=== PATIENT | female | born 1930 | race Caucasian/White ===

== ENCOUNTER 2018-06-21 10:44 | Inpatient (IN) ==
[2018-06-21] MEDS ORDERED: LEVAQUIN PREMIX IV 750 MG 750 MG/150 ML BAG IV SCH (13:16)
[2018-06-21] MEDS ORDERED: TUSSIONEX PENNKINETIC SUSP PO PRN (13:16)
[2018-06-21 13:19] VITALS: BMI 22.8
[2018-06-21] MEDS ORDERED: SALINE 3% 15 ML NEB TX NEB ONE (13:22)
[2018-06-21] MEDS ORDERED: NS 1/2 1000 ML IV 1,000 ML ONE (13:44)
[2018-06-21] MEDS: NS 1/2 1000 ML IV 1,000 ML IV SCH (13:45)
[2018-06-21] MEDS: VSL#3 PO SCH (13:45)
[2018-06-21 13:49] LABS: BASOPHILS # (AUTO) 0.1 X10^3/uL (0.0-0.1); BASOPHILS % (AUTO) 0.5 % (0.2-1.0); EOSINOPHILS # (AUTO) 0.2 x10^3/uL (0.0-0.2); HEMATOCRIT 29.2 % (36.0-47.0); HEMOGLOBIN 9.8 g/dL (12.0-16.0); LYMPHOCYTES # (AUTO) 1.5 X10^3/uL (1.3-2.9); LYMPHOCYTES % (AUTO) 14.2 % (21.0-51.0); MEAN CORPUSCULAR HEMOGLOBIN 28.2 pg (27.0-34.0); MEAN CORPUSCULAR HGB CONC 33.4 g/dL (33.0-35.0); MEAN CORPUSCULAR VOLUME 84.3 fL (80.0-100.0); MEAN PLATELET VOLUME 8.2 fL (7.4-11.0); MONOCYTES # (AUTO) 0.5 x10^3/uL (0.3-0.8); MONOCYTES % (AUTO) 4.8 % (0.0-13.0); NEUTROPHILS # (AUTO) 8.5 x10^3/uL (2.2-4.8); NEUTROPHILS % (AUTO) 78.5 % (42.0-75.0); PLATELET COUNT 232 X10^3/uL (150.0-450.0); RED BLOOD COUNT 3.47 X10^6/uL (3.5-5.4); RED CELL DISTRIBUTION WIDTH 15.8 % (11.6-16.5); WHITE BLOOD COUNT 10.9 X10^3/uL (3.6-10.0)
[2018-06-21 14:01] LABS: ALANINE AMINOTRANSFERASE 36 Units/L (12-78); ALBUMIN 3.4 g/dL (3.4-5.0); ALKALINE PHOSPHATASE 135 Units/L (46-116); ASPARTATE AMINO TRANSFERASE 22 Units/L (15-37); BLOOD UREA NITROGEN 38 mg/dL (7-18); CALCIUM 9.3 mg/dL (8.5-10.1); CARBON DIOXIDE 24.2 mmol/L (21-32); CHLORIDE 102 mmol/L (98-107); COR NA(FOR HYPERGLY) 141 mmol/L (136-145); CREATININE 1.96 mg/dL (0.55-1.02); SODIUM 139 mmol/L (136-145); TOTAL PROTEIN 7.2 g/dL (6.4-8.2); eGFR NON BLACK RACES 26 (>60)
[2018-06-21] MEDS: ROBITUSSIN DM PO SCH ×3 (14:04→20:23)
[2018-06-21] MEDS ORDERED: PHARMACY CONSULT - DOSE _____ XX SCH (17:00)
[2018-06-21] MEDS: DUONEB 0.5 MG/3 MG NEB SCH ×2 (17:11→21:20)
[2018-06-21] MEDS: DECADRON JET NEB (RESP USE) NEB SCH ×2 (17:53→21:20)
--- NOTE | 2018-06-21 18:30 | RAD ---
Chest AP portable Indication: Pneumonia Comparison: 03/12/2018 Findings: There is no pneumothorax. There is cardiomegaly and COPD change with increased interstitial markings. Dense right mid lung zone opacities compatible with pneumonia. Impression: 1. Right mid lung opacity, most compatible with pneumonia. Follow-up to resolution to exclude underlying lesion 2. Cardiomegaly and COPD change. Background of CHF not excluded. Reported By:
[2018-06-21] MEDS: ZOCOR TAB 20 MG PO SCH (20:23)
[2018-06-21] MEDS ORDERED: PULMICORT NEB TX 0.5 MG NEB SCH (21:00)
--- NOTE | 2018-06-21 21:59 | DR.UPDATE ---
H&P Update History and Physical Update: WAS SEEN IN THE OFFICE TODAY FOR COMPLAINTS OF A PERSISTENT, PRODUCTIVE COUGH FOR THE PAST SEVERAL DAYS. SHE REPORTED USE OF RESPIRATORY TREATMENTS WITHOUT IMPROVEMENT IN SYMPTOMS. SHE WAS ADMITTED FOR FURTHER EVALUATION AND TREATMENT OF PNEUMONIA. ON ADMISSION, WE PLAN TO OBTAIN LABS AND CHEST XRAY. WE WILL START HER ON THE PNEUMONIA PROTOCOL WITH IV LEVAQUIN. OTHERWISE, WE WILL FOLLOW UP WITH AM LABS AND CONTINUE TO MONITOR. Changes noted: NO
[2018-06-22] MEDS: NS 1/2 1000 ML IV 1,000 ML IV SCH ×3 (03:06→18:01)
[2018-06-22] MEDS ORDERED: NS 1/2 1000 ML IV 1,000 ML ONE ×3 (04:06→20:21)
[2018-06-22 05:59] LABS: BASOPHILS % (AUTO) 0.3 % (0.2-1.0); EOSINOPHILS % (AUTO) 0.3 % (0.9-2.9); HEMATOCRIT 28.6 % (36.0-47.0); HEMOGLOBIN 9.6 g/dL (12.0-16.0); LYMPHOCYTES # (AUTO) 1.1 X10^3/uL (1.3-2.9); LYMPHOCYTES % (AUTO) 11.3 % (21.0-51.0); MEAN CORPUSCULAR HEMOGLOBIN 28.6 pg (27.0-34.0); MEAN CORPUSCULAR HGB CONC 33.7 g/dL (33.0-35.0); MEAN CORPUSCULAR VOLUME 84.9 fL (80.0-100.0); MEAN PLATELET VOLUME 8.7 fL (7.4-11.0); MONOCYTES # (AUTO) 0.4 x10^3/uL (0.3-0.8); NEUTROPHILS # (AUTO) 8.3 x10^3/uL (2.2-4.8); NEUTROPHILS % (AUTO) 84.1 % (42.0-75.0); PLATELET COUNT 233 X10^3/uL (150.0-450.0); RED BLOOD COUNT 3.37 X10^6/uL (3.5-5.4); RED CELL DISTRIBUTION WIDTH 15.6 % (11.6-16.5); WHITE BLOOD COUNT 9.9 X10^3/uL (3.6-10.0)
[2018-06-22 06:08] LABS: ALBUMIN 3.1 g/dL (3.4-5.0); CALCIUM 9.1 mg/dL (8.5-10.1); CARBON DIOXIDE 24.3 mmol/L (21-32); COR CA(FOR HYPOALB) 9.8 mg/dL (8.5-10.1); CREATININE 1.69 mg/dL (0.55-1.02); TOTAL PROTEIN 6.7 g/dL (6.4-8.2)
[2018-06-22 06:09] LABS: PLATELET MORPHOLOGY COMMENT NORMAL (NORMAL)
--- NOTE | 2018-06-22 06:21 | RAD ---
HISTORY: Shortness of breath Study: Chest AP portable Comparison: 06/21/2018 Findings: The heart is enlarged. No congestive heart failure is noted. The opal are normal. There has been significant improvement in the peripheral right lung infiltrate being followed. Mild residual infiltrate remains. The left lung is clear. No pleural effusions are identified. The bony thorax is unremarkable with the exception of left-sided chronic rotator cuff disease. IMPRESSION: Significant improvement in the peripheral right lung infiltrates being followed Continued cardiomegaly without congestive heart failure Reported By:
[2018-06-22] MEDS: DIOVAN TAB 160 MG PO SCH (08:23)
[2018-06-22] MEDS: HYDROCHLOROTHIAZIDE 12.5 MG CAP PO SCH (08:23)
[2018-06-22] MEDS: COREG TAB 3.125 MG PO SCH (08:23)
[2018-06-22] MEDS: ROBITUSSIN DM PO SCH ×4 (08:23→20:38)
[2018-06-22] MEDS: VSL#3 PO SCH (08:24)
[2018-06-22] MEDS: LOVENOX INJ 30 MG SYR SC SCH (08:24)
[2018-06-22] MEDS: PROTONIX TAB 40 MG PO SCH (08:24)
[2018-06-22] MEDS: DUONEB 0.5 MG/3 MG NEB SCH ×4 (08:47→20:08)
[2018-06-22] MEDS: DECADRON JET NEB (RESP USE) NEB SCH ×4 (08:48→20:08)
[2018-06-22] MEDS: ZOCOR TAB 20 MG PO SCH (20:38)
[2018-06-23] MEDS: NS 1/2 1000 ML IV 1,000 ML IV SCH ×3 (05:40→22:38)
[2018-06-23 05:46] LABS: BASOPHILS % (AUTO) 0.1 % (0.2-1.0); HEMATOCRIT 28.2 % (36.0-47.0); HEMOGLOBIN 9.4 g/dL (12.0-16.0); LYMPHOCYTES % (AUTO) 8.7 % (21.0-51.0); MEAN CORPUSCULAR HEMOGLOBIN 28.2 pg (27.0-34.0); MEAN CORPUSCULAR HGB CONC 33.3 g/dL (33.0-35.0); MEAN CORPUSCULAR VOLUME 84.8 fL (80.0-100.0); MEAN PLATELET VOLUME 8.9 fL (7.4-11.0); MONOCYTES # (AUTO) 0.3 x10^3/uL (0.3-0.8); MONOCYTES % (AUTO) 2.6 % (0.0-13.0); NEUTROPHILS # (AUTO) 9.9 x10^3/uL (2.2-4.8); NEUTROPHILS % (AUTO) 88.6 % (42.0-75.0); PLATELET COUNT 239 X10^3/uL (150.0-450.0); RED BLOOD COUNT 3.32 X10^6/uL (3.5-5.4); RED CELL DISTRIBUTION WIDTH 15.5 % (11.6-16.5); WHITE BLOOD COUNT 11.1 X10^3/uL (3.6-10.0)
[2018-06-23 05:57] LABS: ALBUMIN 3.1 g/dL (3.4-5.0); CALCIUM 9.2 mg/dL (8.5-10.1); CARBON DIOXIDE 22.8 mmol/L (21-32); COR CA(FOR HYPOALB) 9.9 mg/dL (8.5-10.1); CREATININE 1.48 mg/dL (0.55-1.02); TOTAL PROTEIN 6.8 g/dL (6.4-8.2)
--- NOTE | 2018-06-23 06:52 | RAD ---
Examination: Portable AP chest History: SOB Comparison 06/22/2018 Findings: Continued cardiac enlargement. No change in the ill-defined infiltrate right mid lung. There is no new abnormality demonstrated. Impression: No change. Stable cardiomegaly and mild right mid lung infiltrate. Reported By:
[2018-06-23] MEDS: COREG TAB 3.125 MG PO SCH (08:32)
[2018-06-23] MEDS: PROTONIX TAB 40 MG PO SCH (08:32)
[2018-06-23] MEDS: VSL#3 PO SCH (08:32)
[2018-06-23] MEDS: LEVAQUIN PREMIX IV 750 MG 750 MG/150 ML BAG IV SCH (08:32)
[2018-06-23] MEDS: HYDROCHLOROTHIAZIDE 12.5 MG CAP PO SCH (08:32)
[2018-06-23] MEDS: DIOVAN TAB 160 MG PO SCH (08:32)
[2018-06-23] MEDS: ROBITUSSIN DM PO SCH ×4 (08:32→20:40)
[2018-06-23] MEDS: LOVENOX INJ 30 MG SYR SC SCH (08:33)
[2018-06-23] MEDS: DUONEB 0.5 MG/3 MG NEB SCH ×4 (09:11→21:13)
[2018-06-23] MEDS: DECADRON JET NEB (RESP USE) NEB SCH ×2 (09:12→12:45)
[2018-06-23] MEDS ORDERED: PROTONIX INJ 40 MG VIAL IVP SCH (16:00)
[2018-06-23] MEDS: PULMICORT NEB TX 0.5 MG NEB SCH ×2 (16:29→21:13)
[2018-06-23] MEDS: SOLU-Medrol 40 MG VIAL IVP SCH ×2 (16:43→22:38)
[2018-06-23] MEDS: CARAFATE ORAL SUSP PO SCH ×2 (16:43→20:40)
[2018-06-23] MEDS: ZOCOR TAB 20 MG PO SCH (20:40)
[2018-06-23] MEDS ORDERED: NS 1/2 1000 ML IV 1,000 ML ONE (23:30)
[2018-06-24] MEDS: NS 1/2 1000 ML IV 1,000 ML IV SCH ×2 (00:24→16:45)
--- NOTE | 2018-06-24 03:23 | CT ---
CT chest without contrast Indication: Shortness of breath, pneumonia Technique: Helical CT images of the chest were obtained without IV contrast. Reformatted images in the coronal and sagittal planes were also generated for review. Comparison: None Findings: Evaluation of the mediastinum is limited without IV contrast. Accounting for this, the heart is mildly enlarged without significant pericardial effusion. Mild coronary atherosclerotic disease noted. The unenhanced thoracic aorta and proximal great vessels are mildly calcified but otherwise normal for technique. Central airways are patent. There is no mediastinal or bulky hilar lymphadenopathy. There are scattered nodular tree-in-bud opacities within the apex of the right upper lobe. Additional linear opacities within the anterior right upper lobe and middle lobe are favored to represent atelectasis versus scarring. The remainder of the lungs are clear. No significant pleural effusion or pneumothorax is identified. Limited noncontrast images of the upper abdomen demonstrate a 4 cm soft tissue density lesion arising from the mid right kidney. No acute osseous abnormality is identified. Impression: Nodular tree-in-bud opacities within the right upper lobe, likely representing infectious or inflammatory pneumonitis. 4 cm soft tissue density lesion arising from the right kidney, for which ultrasound is recommended for further characterization. Cardiomegaly and additional findings as above. Reported By:
[2018-06-24 05:24] LABS: BASOPHILS % (AUTO) 0 % (0.2-1.0); HEMATOCRIT 28.1 % (36.0-47.0); HEMOGLOBIN 9.3 g/dL (12.0-16.0); LYMPHOCYTES # (AUTO) 0.8 X10^3/uL (1.3-2.9); LYMPHOCYTES % (AUTO) 6.3 % (21.0-51.0); MEAN CORPUSCULAR HEMOGLOBIN 28.2 pg (27.0-34.0); MEAN CORPUSCULAR HGB CONC 33.1 g/dL (33.0-35.0); MEAN CORPUSCULAR VOLUME 85.2 fL (80.0-100.0); MEAN PLATELET VOLUME 8.7 fL (7.4-11.0); MONOCYTES # (AUTO) 0.1 x10^3/uL (0.3-0.8); MONOCYTES % (AUTO) 0.8 % (0.0-13.0); NEUTROPHILS # (AUTO) 12.1 x10^3/uL (2.2-4.8); NEUTROPHILS % (AUTO) 92.9 % (42.0-75.0); PLATELET COUNT 253 X10^3/uL (150.0-450.0); RED CELL DISTRIBUTION WIDTH 15.5 % (11.6-16.5)
[2018-06-24 05:36] LABS: ALBUMIN 3.1 g/dL (3.4-5.0); CALCIUM 9.1 mg/dL (8.5-10.1); CARBON DIOXIDE 23.7 mmol/L (21-32); COR CA(FOR HYPOALB) 9.8 mg/dL (8.5-10.1); CREATININE 1.72 mg/dL (0.55-1.02); TOTAL PROTEIN 6.7 g/dL (6.4-8.2)
[2018-06-24] MEDS: CARAFATE ORAL SUSP PO SCH ×5 (06:02→20:54)
[2018-06-24 06:40] LABS: PLATELET MORPHOLOGY COMMENT NORMAL (NORMAL)
[2018-06-24 07:56] LABS: ABG ALLEN TEST POS; ABG BASE EXCESS -2.8 mmol/L (-2.0-2.0); ABG HCO3 21.9 mmol/L (22-26)
[2018-06-24] MEDS: DUONEB 0.5 MG/3 MG NEB SCH ×4 (08:19→20:37)
[2018-06-24] MEDS: PULMICORT NEB TX 0.5 MG NEB SCH ×2 (08:19→20:37)
[2018-06-24] MEDS: MILK OF MAGNESIA PO SCH ×2 (09:39→20:55)
[2018-06-24] MEDS: ROBITUSSIN DM PO SCH ×4 (09:39→20:54)
[2018-06-24] MEDS: PROTONIX TAB 40 MG PO SCH (09:40)
[2018-06-24] MEDS: COREG TAB 3.125 MG PO SCH (09:40)
[2018-06-24] MEDS: HYDROCHLOROTHIAZIDE 12.5 MG CAP PO SCH (09:40)
[2018-06-24] MEDS: LOVENOX INJ 30 MG SYR SC SCH (09:40)
[2018-06-24] MEDS: VSL#3 PO SCH (09:40)
[2018-06-24] MEDS: DIOVAN TAB 160 MG PO SCH (09:40)
--- NOTE | 2018-06-24 12:15 | RAD ---
HISTORY: Shortness of breath. Prior history of COPD. Study: Single-view chest, done portably Comparison: 06/23/2018. Findings: Trachea is midline. There is cardiomegaly. Increased interstitial markings are present bilaterally with some improved aeration in the right lung. A small amount of atelectasis or infiltrate persist in the right upper lobe. Left lung is clear. No CHF, pleural fluid or pneumothorax is seen. Osseous structures intact.. IMPRESSION: Changes of COPD with improved infiltrate involving the right lung. A small focus of atelectasis or infiltrate is present in the right upper lobe. Cardiomegaly. Reported By:
[2018-06-24] MEDS ORDERED: NS 1/2 1000 ML IV 1,000 ML ONE (18:58)
[2018-06-24] MEDS: ZOCOR TAB 20 MG PO SCH (20:53)
[2018-06-24] MEDS ORDERED: COLACE CAP 100 MG PO SCH (21:00)
[2018-06-25] MEDS: NS 1/2 1000 ML IV 1,000 ML IV SCH ×3 (00:42→10:13)
[2018-06-25 05:17] LABS: BASOPHILS % (AUTO) 0.2 % (0.2-1.0); HEMATOCRIT 27.7 % (36.0-47.0); HEMOGLOBIN 9.3 g/dL (12.0-16.0); LYMPHOCYTES # (AUTO) 2.5 X10^3/uL (1.3-2.9); LYMPHOCYTES % (AUTO) 17.1 % (21.0-51.0); MEAN CORPUSCULAR HEMOGLOBIN 28.4 pg (27.0-34.0); MEAN CORPUSCULAR HGB CONC 33.6 g/dL (33.0-35.0); MEAN CORPUSCULAR VOLUME 84.6 fL (80.0-100.0); MEAN PLATELET VOLUME 8.5 fL (7.4-11.0); MONOCYTES # (AUTO) 0.9 x10^3/uL (0.3-0.8); MONOCYTES % (AUTO) 6.4 % (0.0-13.0); NEUTROPHILS # (AUTO) 11.2 x10^3/uL (2.2-4.8); NEUTROPHILS % (AUTO) 76.3 % (42.0-75.0); PLATELET COUNT 261 X10^3/uL (150.0-450.0); RED BLOOD COUNT 3.28 X10^6/uL (3.5-5.4); RED CELL DISTRIBUTION WIDTH 15.6 % (11.6-16.5); WHITE BLOOD COUNT 14.7 X10^3/uL (3.6-10.0)
[2018-06-25 05:30] LABS: CALCIUM 8.9 mg/dL (8.5-10.1); CARBON DIOXIDE 26.6 mmol/L (21-32); COR CA(FOR HYPOALB) 9.7 mg/dL (8.5-10.1); CREATININE 1.54 mg/dL (0.55-1.02); TOTAL PROTEIN 6.2 g/dL (6.4-8.2)
[2018-06-25] MEDS: CARAFATE ORAL SUSP PO SCH (05:38)
--- NOTE | 2018-06-25 06:32 | RAD ---
Chest, one view Indication: Pneumonia Comparison: 06/24/2018 Findings: There is stable enlargement of the cardiac silhouette without congestive failure. No acute alveolar infiltrate or significant effusion is identified. No pneumothorax. Impression: Stable cardiomegaly without acute cardiopulmonary abnormality. Reported By:
[2018-06-25] MEDS: DUONEB 0.5 MG/3 MG NEB SCH ×2 (08:13→14:54)
[2018-06-25] MEDS: PULMICORT NEB TX 0.5 MG NEB SCH (08:13)
--- NOTE | 2018-06-25 09:16 | US ---
HISTORY: Right renal lesion Study: Renal ultrasound: Multiplanar ultrasonographic examination of the kidneys and urinary bladder was performed. Comparison: Visualized kidneys on a CT scan from 06/23/2018 Findings: On the images submitted to mo the kidneys overall demonstrate cortical thinning bilaterally. Right kidney: 9.5 cm in length by 3.7 x 4.6 cm. Cortex is measured at 11 mm. The resistive index is 0.86. There is a complex solid and cystic mass extending from the midpole measuring 3.9 x 4.2 x 4.2 cm. This is highly suspicious for an underlying renal cell carcinoma. Left kidney: 7.7 cm in length by 4.3 x 3.8 cm. Cortex is measured at 9 mm. The resistive index is 0.82. Urinary bladder: As visualized is normal. IMPRESSION: 1. There is a solid and cystic mass arising from the midpole of the right kidney. This is highly suspicious for an underlying renal cell carcinoma. Further evaluation is recommended. MRI of the kidneys may be of assistance. 2. 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 3. Elevated resistive indices bilaterally. Reported By:
[2018-06-25] MEDS: ROBITUSSIN DM PO SCH (09:26)
[2018-06-25] MEDS: PROTONIX TAB 40 MG PO SCH (09:26)
[2018-06-25] MEDS: DIOVAN TAB 160 MG PO SCH (09:26)
[2018-06-25] MEDS: VSL#3 PO SCH (09:26)
[2018-06-25] MEDS: LEVAQUIN PREMIX IV 750 MG 750 MG/150 ML BAG IV SCH (09:27)
[2018-06-25] MEDS: HYDROCHLOROTHIAZIDE 12.5 MG CAP PO SCH (09:27)
[2018-06-25] MEDS: LOVENOX INJ 30 MG SYR SC SCH (09:28)
[2018-06-25] MEDS: MILK OF MAGNESIA PO SCH (09:29)
[2018-06-25] MEDS: COREG TAB 3.125 MG PO SCH (09:29)
[2018-06-25] MEDS ORDERED: NS 1/2 1000 ML IV 1,000 ML ONE (09:43)
[2018-06-25 10:13] VITALS: BP 178/86
== END 2018-06-25 11:30 | disposition home or self-care (01) | DRG 195 ==
LOC: MED/SURG 12:28
PROVIDERS: ADMIT Internal Medicine; ATTEND Internal Medicine
DX: E11.65 Type 2 diabetes mellitus with hyperglycemia; E87.6 Hypokalemia; J30.9 Allergic rhinitis, unspecified; J18.8 Other pneumonia, unspecified organism; R94.4 Abnormal results of kidney function studies
CPT/HCPCS: 36415; 36600; 71010; 71045; 71250; 76770; 80053; 82803; 84132; 85025; 87040; 87070; 87205; 94640; 94760; 99231; A4222; J1650; J1956; J2920; J7620; J7626